=== PATIENT | female | born 1995 | race Caucasian/White ===

== ENCOUNTER 2019-08-09 16:25 | Emergency (ER) | payer BC ==
[~2019-08-09] VITALS: Ht 152.4 cm; Wt 48.2 kg
[2019-08-09] MEDS ORDERED: ALBUTEROL SULF 0.083% NEB SOLN 3 ML NEB NEB STA (16:45)
[2019-08-09] MEDS ORDERED: ALBUTEROL SULF 0.083% NEB SOLN 3 ML NEB ONE (17:10)
--- NOTE | 2019-08-09 17:10 | Diagnostic Imaging Report ---
EXAMINATION: CXR 1 VEW - HOP INDICATION: Near syncope COMPARISON: None FINDINGS: LINES/TUBES:None LUNGS:The lungs are well-inflated. No focal consolidation or pulmonary edema. PLEURA:No pleural effusion or pneumothorax. MEDIASTINUM:The cardiomediastinal silhouette appears normal in size and shape. BONES/SOFT TISSUES:No acute osseous injury. ABDOMEN:No free air under the diaphragm. IMPRESSION: No focal pneumonia or pulmonary edema. Signed by: Dionicio Mariee MD on 08/09/2019 5:07 PM
[2019-08-09] MEDS ORDERED: POTASSIUM CHLORIDE 20 MEQ TAB CR PO ONE (17:21)
[2019-08-09 17:53] VITALS: BP 126/84
== END 2019-08-09 18:05 | disposition home or self-care (01) ==
LOC: FSED 16:25
DX: R06.00 Dyspnea, unspecified (principal); J20.8 Acute bronchitis due to other specified organisms
CPT/HCPCS: 71045; 80053; 81025; 85025; 85379; 99283